=== PATIENT | male | born 1995 | race African-American/Black ===

== ENCOUNTER 2019-08-02 08:27 | Emergency (ER) | payer MEDICAID ==
[~2019-08-02] VITALS: Ht 177.8 cm; Wt 64.0 kg
[2019-08-02 08:43] VITALS: BP 103/60
[2019-08-02] MEDS ORDERED: ONDANSETRON 4MG ODT PO ONE (10:30)
== END 2019-08-02 10:57 | disposition left against medical advice (07) ==
LOC: ER 08:27
DX: R10.84 Generalized abdominal pain (principal); R11.10 Vomiting, unspecified; Z98.890 Other specified postprocedural states
CPT/HCPCS: 99283

== ENCOUNTER 2020-10-20 21:02 | Emergency (ER) | payer BC, MEDICAID ==
[~2020-10-20] VITALS: Ht 177.8 cm; Wt 61.0 kg
[2020-10-20] MEDS ORDERED: ONDANSETRON 4MG ODT PO ONE (22:15)
[2020-10-20] MEDS ORDERED: ONDA4TAB5 MT (23:28)
[2020-10-20 23:43] VITALS: BP 110/65
== END 2020-10-20 23:44 | disposition home or self-care (01) ==
LOC: ER 21:02
DX: R11.2 Nausea with vomiting, unspecified (principal); F12.10 Cannabis abuse, uncomplicated; G43.909 Migraine, unspecified, not intractable, without status migrainosus; Z98.890 Other specified postprocedural states
CPT/HCPCS: 99283; Q0162